=== PATIENT | female | born 1955 | race Two or more races ===

== ENCOUNTER 2018-03-02 09:53 | Outpatient (CLI) | payer OTHER | END 2018-03-02 10:12 | disposition home or self-care (01) | LOC: SONOGRAMA 09:53 | DX: E04.1 Nontoxic single thyroid nodule (principal) ==

== ENCOUNTER 2024-06-11 07:06 | Day surgery (SDC) | payer OTHER ==
[2024-06-11] MEDS ORDERED: fentaNYL CITRATE 50 MCG/ML AMPUL IV PUSH ONE (12:15)
[2024-06-11] MEDS ORDERED: DIPHENHYDRAMINE HCL 50 MG/ML VIAL 1ML IV ONE (12:15)
[2024-06-11] MEDS ORDERED: ONDANSETRON HCL 2 MG/ML VIAL IV ONE (12:15)
[2024-06-11] MEDS ORDERED: MIDAZOLAM HCL 2 MG/2 ML VIAL IV ONE (12:15)
== END 2024-06-11 14:10 | disposition home or self-care (01) ==
LOC: AMB-ENDOS 07:06
PROVIDERS: ATTEND Colon & Rectal Surgery
DX: K63.5 Polyp of colon (principal); K62.1 Rectal polyp; K62.5 Hemorrhage of anus and rectum; K57.30 Diverticulosis of large intestine without perforation or abscess without bleeding